=== PATIENT | female | born 1970 | race American Indian/Alaskan Native ===

== ENCOUNTER 2019-05-13 08:37 | Emergency (ER) | payer BC ==
[2019-05-13 08:49] VITALS: BP 189/115
--- NOTE | 2019-05-13 11:22 | Emergency Department Report ---
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 Patient denies any injuries. She reports she has had a history of pain chronically to this wrist in the past but has not had a flareup with pain recently. 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 She states her pain is aggr avated with flexion of the wrist mildly alleviated with extension. She has a past medical history of hypertension which she usually takes lisinopril however reports she has been noncompliant with this. She denies any allergies to medications. She reports her pain is a 7 out of 10 in severity described as a constant throbbing pain with sharp pain on movement. She reports the pain that is on the palmar side of the wrist will radiate into the palm. She denies any numbness or weakness. She denies any pain shooting to the elbow or shoulder. She denies any associated fever, chills, night sweats, headache, dizziness, blurry vision, nausea, vomiting, diarrhea, chest pain, shortness of breath or any other associated symptoms. 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 denies: back pain, joint swelling Skin: denies: rash, lesions Neurological: denies: headache, weakness, paresthesias Psychiatric: denies: anxiety, depression Hematological/Lymphatic: denies: easy bleeding, easy bruising ED Past Medical Hx - Past Medical History Previous Medical History?: No - Surgical History Past Surgical History?: No Additional Surgical History: Hysterectomy - Family History Family history: no significant - Medications Home Medications: Home Medications Medication Instructions Recorded Confirmed Last Taken Type Naproxen [Naprosyn TAB] 500 mg PO BID #20 tablet 05/13/19 Unknown Rx Upper Extremity Exam - Exam General: Vital signs noted. No distress. Alert and acting appropriately. Head and Torso: No HEENT Abnormality, No Neck Tenderness, No Chest/Lungs Abnormality, No Abdominal Tenderness, No Back Tenderness Shoulder Exam: Yes Normal Range of Motion in Shoulder, No Shoulder Tenderness, No Clavicle Tenderness, No Shoulder Deformity, No AC Joint Tenderness Arm Exam: No Arm/Humerus Tenderness, No Arm Deformity Elbow: No Elbow Tenderness, No Normal Range of Motion in Elbow, No Elbow Defo rmity Forearm: No Forearm Tenderness, No Forearm Deformity, No Pain with Pronation, No Pain with Supination Wrist: Yes Wrist Tenderness (Tenderness to palpation over the anterior right wrist. No deformity. Pain with Tinel sign. Pain with Phalen sign. 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 Normal distal sensation capillary refill. Normal radial pulse. Normal passive and active range of motion of the right elbow and shoulder without pain.), Yes Normal ROM in Wrist, No Wrist Deformity, No Snuffbox Tenderness, No Pain with Axial Thumb Compression Hand: Yes Normal ROM in Digit(s), No Hand Tenderness, No Hand Deformity, No Digit Tenderness, No Digit(s) Deformity, No Tendon Dysfunction CMS Exam: No Broken Skin, No Normal Distal Pulses, No Normal Capillary Refill, No Normal Distal Sensation ED Course Vital Signs 05/13/19 08:43 Temperature 98.7 F Pulse Rate 85 Respiratory 20 Rate Blood Pressure 189/115 O2 Sat by Pulse 100 Oximetry ED Medical Decision Making - Medical Decision Making Patient is nontoxic in no acute distress. Vitals are stable other than she was hypertensive however has been noncompliant with her lisinopril treatment. I recommended that she start taking this. She was otherwise asymptomatic as far as her blood pressure with no headache, dizziness, chest pain, shortness of breath, weakness or any other symptoms. She was educated on the importance of taking her medications. Her exam was consistent with medial nerve impingement likely secondary to carpal tunnel syndrome. Will apply a wrist brace and recommended anti-inflammatories and follow-up with orthopedics for proper nerve conduction study for definitive evaluation. Without an injury at this time I do not think any x-ray imaging is indicated. She had normal distal sensation capillary refill and was hemodynamically stable and her neurovascular exam was unremarkable. She had no recent IVs or procedures to the arm and no swelling to the arm with a low Wells risk for DVT making this unlikely. Recommend return to emergency department any change or worsening symptoms otherwise follow-up with orthopedics which will be provided to her. She verbalized understanding of the diagnosis, treatment plan and follow-up instructions and all of her questions were answered. - Differential Diagnosis carpal tunnel syndrome, strain, sprain Critical care attestation.: If time is entered above; I have spent that time in minutes in the direct care of this critically ill patient, excluding procedure time. ED Disposition Clinical Impression: Carpal tunnel syndrome of right wrist Disposition: - TO HOME OR SELFCARE Is pt being admited?: No Condition: Stable Instructions: Carpal Tunnel Syndrome (ED) Prescriptions: Naproxen [Naprosyn TAB] 500 mg PO BID #20 tablet Referrals: BRITTANY FARIAS MD [Staff Physician] - 3-5 Days Time of Disposition: 11:24 }
== END 2019-05-13 11:44 | disposition home or self-care (01) ==
LOC: ED 08:37
DX: G56.01 Carpal tunnel syndrome, right upper limb (principal); Z79.899 Other long term (current) drug therapy; Z98.890 Other specified postprocedural states; Z90.710 Acquired absence of both cervix and uterus
CPT/HCPCS: 99281